=== PATIENT | male | born 1975 | race African-American/Black ===

== ENCOUNTER 2023-11-10 01:06 | Emergency (ER) | payer MEDICAID, OTHER ==
[~2023-11-10] VITALS: Ht 172.7 cm; Wt 74.1 kg
[~2023-11-10 01:06] MED LIST: IBUP-1984 PO; NO HOME MEDS
[2023-11-10 01:20] VITALS: TEMP 98.4
[2023-11-10] MEDS: LIDOcaine 1% W/epiNEPHrine 1:100,000 20ml vial IJ ONE (02:10)
[2023-11-10] MEDS: TETanus/Pertussis (Acell)/Diphther VAC/PF (Tdap-Adult) 0.5ml syringe IMVAC ONE (02:27)
[2023-11-10] MEDS: ondansetron 4mg rapidly disintigrating tab PO ONE (02:28)
[2023-11-10] MEDS: HYDROcodone/acetaminophen 5mg/325mg tablet PO ONE (02:28)
[2023-11-10] MEDS: ceFAZolin 1gm IM kit IM ONE (02:31)
[2023-11-10] MEDS ORDERED: CEPH-585 PO (02:56)
[2023-11-10 03:12] VITALS: BP 135/75; PULSE 68; RESP 16; O2SAT 100
== END 2023-11-10 03:11 | disposition home or self-care (01) ==
LOC: ER 01:06
DX: S81.812A Laceration without foreign body, left lower leg, initial encounter (principal); Z79.1 Long term (current) use of non-steroidal anti-inflammatories (NSAID); W29.3XXA Contact with powered garden and outdoor hand tools and machinery, initial encounter; Y93.89 Activity, other specified; Y92.89 Other specified places as the place of occurrence of the external cause; Y99.8 Other external cause status
CPT/HCPCS: 12034; 90471; 90715; 96372; 99284; J0690; A6258; A6446; A6449